=== PATIENT | male | born 1980 | race Caucasian/White ===

== ENCOUNTER 2018-12-05 10:00 | Day surgery (SDC) | payer OTHER ==
--- NOTE | 2018-12-04 20:29 | PDGENHP ---
History and Physical - Chief Complaint RIGHT HIP PAIN - History of Present Illness 1.~LEFT-Femoroacetabular impingement (DIANNA) Cam type,~with~resultant labral tear ; RIGHT SIDE SYMPTOMATIC 2. History of Right Hip Arthroscopy HISTORY OF PRESENT ILLNESS: Seymouris a~36 y.o.~very~~active~male~who I have had the pleasure to consult on today.~I have enjoyed meeting him.~He~lives in [place].~~Tyrell~works in [employer] in [employer].~~He~is ;~he~has 2~children. ~Seymourenjoys golfing, skiing , and basketball. Tyrell's~right~hip pain~started December 2015 after running a 10K and~two~ subsequent 5Ks, with~no~recalled trauma or injury, and with~no~previous complaints.~Seymourdoes not have~a known history of hip dysplasia. Presentation today is of~anterior~right~hip pain.~~He describes having~right lower radicular symptoms down to his feet which get numb.~~The hip~does not~ wake him~at night and~does~click and catch on~him. Sitting~can be uncomfortable~ for him.~Seymourdoes~report suffering from lower back pain episodes. (DDD and herniated discs unclear which levels) Seymourhas not~participated in physical therapy and has~tried other conservative measures including cortisone~hip injections~a month ago (0% relief , either immediate or snf)~.~He~has not~received sufficient symptomatic improvement. Tyrell~has~utilized medication for pain management, including NSAID.~Tyrell~has used medication for since the pain began. Seymourhas~issues with the left~hip that he attributes to compensation.~ Seymourunderstands that~he~has a hip and pelvis problem which should be researched and wishes to get a better understanding of~his~hip status, followed by an establishment of a treatment strategy, hoping~luke~would be able to get back to~his~well being active life. History: Past medical history:~~ None which is relevant~ Relevant familial history:~Father with OA Past surgical history:~ No. Surgery Anesthesia 1 Upper and lower mandible general 2 septoplasty general 3. Right Hip Arthroscopy Tyrell~denies problematic issues with general anesthesia in the past. I have reviewed, verified and agree with the past medical, surgical, family and social history. Current Medications:~has a current medication list which includes the following prescription(s): meloxicam. ALLERGIES:~is allergic to ibuprofen. Objective: Physical Examination: Tyrell~is 6~feet~1~inches tall and weighs~180~Lbs. Tyrell~is AAO x3; he~is well- nourished, in NAD. Skin is warm and dry. ~Breathing is non-labored. ~CV with RRR by pulse. Abdomen is soft, NTND. Currently,~he~walks with a~normal~gait. Trendelenburg sign is~negative~and proprioception~is normal,~both~sides. He~presents~with mild~signs of joint laxity.~Beightons Score:~2 He~is fit looking. ~~ Lower spine examination is~negative~for sciatic or femoral nerve irritation with negative~SLR &~femoral stretch tests. Range of motion of the spine is normal~for flexion, extension, and rotations,~with no~associated pain. Strength, Sensation and pulses are~normal -~bilaterally Ankles and knees exams are~normal~and~no~mal-alignment is evident.~ He~has~no leg length discrepancy. Thigh circumference is~asymmetric~with low~muscle atrophy~on right~side. Hip ROM (degrees): FL ER At 90~hip FL IR At 90~hip FL AB AD EX IR Neutral hip ER Neutral hip R 105 45 25-30 50 5 10 50 40 L 105 50 20 40 5 10 50 40 Specific hip and pelvis tests: Impingement Test JOSSELIN Roll Add. Longus R +++ +++ + Negative L Negative Negative Negative Negative Glut. Med ITB Posterior Imp R Negative 5/5 strength + 5/5 strength Negative L Negative 5/5 strength Negative 5/5 strength Negative Squeeze test measured~strong Bony Symphysis pubis is~painful~to touch~while concentric activity of the rectus abdominis, does~produce pain at its insertion~painful on R side. Ilio Psos specific tests are~positive for pain~during cycling for the right hip~ and remarkable for painful snap HF has~increased pain and weakness on~the right hip. Anterior~capsule tenderness on the R side Greater trochanteric burse is~pain free~on both hips. Piriformis tests: FAIR is~negative,~with no~local signs of neuritis related to sciatic nerve. SIJs examination is~normal~with~normal~JOSSELIN in relation and local tenderness. Hamstrings tests are~negative~functional contraction both hips. On a daily basis, the following percentages reflect~Tyrell's overall total pain: Imaging: Radiology studies which I~have personally reviewed, analyzed and measured are below: XR: AP of the hip and pelvis: Performed in a~good~technique Coccyx~at level of~pubic symphysis 15~degrees caudal [place]~Lines are preserved. Minimal~Pathological signs are seen in the Symphysis Pubis.~ Minimal~Pathological signs are seen at the Ischial~tuberosity. ~ Specific measurements show: NSA~ LCE Sourcil~Angle Sharp's angle Lat. Cam Lat. Pincer C.Over~sign Head~Coverage % ATDmm R N 30 4 39 + - 12-1 N N L N 28 5 38 + - 12-1 N N Pos. wall sign ISS NAD ~~Dysplasia Comments R + Negative 14.3~mm Negative L + Negative 14.8~mm Negative Sclerosis Sup. Lat. OA Cysts Joint Space-WBZ Joint Space-Medial R Negative Negative Negative 3.6~mm 3.1~mm L Negative Negative Negative 3.5~mm 3.1~mm X Table lateral: Anterior cam lesion is~seen~on both hips. Alpha Angle: ~ Right~57 degrees on Jacobo and 65 degrees on AP Left~63~degrees both views MRI shows:~good cartilage coverage, no bone edema, small labrum with labral tear Impression and plan:~ Tyrell~is a~36 y.o.~active male~suffering from symptomatic~Right~hip pain due to Right~Femoroacetabular impingement (DIANNA) Cam type,~with~resultant labral tear ~causing significant disability to~him~and altering~his~sport and life activities. Physical examination, imaging, and~his~story correspond with the diagnosis mentioned above. I explained that femoroacetabular impingement (DIANNA) arises due to a bony or soft tissue conflict between the femur (ball) and acetabulum (socket) caused by an abnormality in the shape of the hip joint. Over time, repetitive impingement can result in damage to the labrum and adjacent surface cartilage within the socket, ultimately giving rise to progressive osteoarthritis of the hip. I explained that although a labral tear can be a source of pain, it is rarely the root of the problem and typically occurs secondary to an underlying abnormality in the shape and mechanics of the hip joint. ~ I reviewed conservative treatment options for DIANNA including activity modification to avoid positions of impingement, physical therapy, non-steroidal anti-inflammatory medications, and various injections (corticosteroid and PRP) aimed at reducing inflammation in the hip joint or/and preventing dynamic impingement. PRP injections may promote healing and reduce symptoms in certain cases but it will not repair chronically damaged tissue. Although these measures may help to buy time and reduce current level of symptoms, they are not a definitive solution to the problem given the underlying abnormality in the shape of the hip joint. Patients who have failed conservative management and continue to experience symptoms are candidates for hip arthroscopy, a minimally invasive surgery that can definitively address the underlying problem. Hip arthroscopy typically includes treating the labrum with either repair or reconstruction of the torn labrum; as well as addressing the underlying abnormalities by restoring the normal shape to the hip joint. ~If the cartilage is damaged a Microfracture surgical procedure may also be necessary to help stimulate the growth of fibrocartilage. ~If a patient requires a labral reconstruction or a Microfracture, the initial rehabilitation from the surgery may take longer, but the welding instructor results are typically favorable. In order to differentiate between the various possible sources of pain~Seymour opted to move forward with an intra articular injection today in clinic. After verbal consent was obtained and Seymourvoiced understanding of risks of infection, misplaced injection, fat or skin atrophy or injection into unintended structures, skin was prepped and draped in routine sterile fashion. With sterile technique, after local skin and subcutaneous tissues were injected with 5cc 1% lidocaine, an injection of 7cc of 1% lidocaine+marcaine~was injected into Tyrell's hip joint without complication. The procedure was well tolerated.~Seymournoted improved symptoms with activity immediately after injection. The injection took~100% of the pain away,~confirming~the hip joint as the major source of his~pain. I reviewed the technical aspects of hip arthroscopy including risks, benefits, and expected course of recovery.~Seymourunderstands that hip arthroscopy is a minimally invasive outpatient procedure carried out through small incisions on the outer aspect of the hip joint. During surgery, the labral tear will be identified and either repaired or reconstructed~using bone anchors and suture material. Additionally, any excessive bone will be removed with a high-speed keny to reshape the hip joint and restore normal anatomy. Risks include infection, bleeding, injury to nearby nerves or vessels, stiffness, persistent pain, instability, venous thromboembolic disease, and traction related complications including temporary foot numbness. Rarely, revision surgery may be required to address these problems. Overall recovery takes approximately 4~ 8~months depending on the extent of damage and degree of repair. In the event that the labral tissue quality is inadequate for successful repair and healing,~Seymourunderstands that a labral reconstruction will be performed. This procedure entails placing a cadaver tissue graft within the hip joint and stabilizing it with bone anchors to build a new labrum. The overall recovery time for labral reconstruction is similar to that of labral repair, although the surgical procedure takes longer to perform. Seymourwill review the info presented. In order to obtain more detailed information regarding the alignment, orientation, and shape of the bony hip and pelvis I will order a CT scan to be performed. The results of the CT scan, including femoral torsion and acetabular version measured values and 3D images, will aid me in deciding on the best treatment strategy and surgical pre-planning. Seymourwill contact us if he~wishes to pursue further treatment in the future. Seymouris happy with this plan. I have also supplied~him~with handouts, outlining the expected surgical treatment and rehab involved. I wish~Seymourall the best, ~~ Jerman Daniels, PAC History Information - Allergies/Home Medication List Allergies/Adverse Reactions: ibuprofen Allergy (Verified 12/01/18 12:22) Rash Home Medications: NK [No Known Home Meds] 12/01/18 [Last Taken Unknown] I have personally reviewed and updated: medical history - Social History Smoking Status: Former smoker Review of Systems Review of Systems: Physical Exam Physical Exam:
[2018-12-05] MEDS ORDERED: ceFAZolin 2 GM/DEXTROSE 100 ML IV ONE (10:09)
[2018-12-05] MEDS ORDERED: ACETAMINOPHEN 500 MG TAB PO ONE (10:09)
[2018-12-05] MEDS ORDERED: PREGABALIN 150 MG CAP PO ONE (10:09)
[2018-12-05] MEDS ORDERED: LIDOCAINE 1% 2 ML INJ ID PRN (10:10)
[2018-12-05] MEDS ORDERED: LR 1,000 ML IV ONE (10:10)
[2018-12-05] MEDS ORDERED: EPINEPHrine 1 MG/ML INJ ONE (11:10)
[2018-12-05] MEDS ORDERED: BUPIVACAINE/EPI 0.25% 30 ML SDV ONE (11:10)
--- NOTE | 2018-12-05 11:33 | PDANEPAE ---
ANE History of Present Illness scar tissue for hip scope ANE Past Medical History - Cardiovascular History Hx Hypertension: No Hx Arrhythmias: No Hx Chest Pain: No Hx Coronary Artery / Peripheral Vascular Disease: No Hx CHF / Valvular Disease: No Hx Palpitations: No - Pulmonary History Hx COPD: No Hx Asthma/Reactive Airway Disease: No Hx Recent Upper Respiratory Infection: No Hx Oxygen in Use at Home: No Hx Sleep Apnea: No Sleep Apnea Screening Result - Last Documented: Negative - Neurologic History Hx Cerebrovascular Accident: No Hx Seizures: No Hx Dementia: No - Endocrine History Hx Diabetes: No - Renal History Hx Renal Disorders: No - Liver History Hx Hepatic Disorders: No - Neurological & Psychiatric Hx Hx Neurological and Psychiatric Disorders: No - Cancer History Hx Cancer: No - Congenital Disorder History Hx Congenital Disorders: No - GI History Hx Gastrointestinal Disorders: No - Other Health History Other Health History: wears glasses - Chronic Pain History Chronic Pain: No - Surgical History Prior Surgeries: upper and lower jaw surgery. deviated septum. right hip surgery with jonelle [facility] Review of Systems Review of Systems: - Exercise capacity METS (RN): 4 METS ANE Patient History - Allergies Allergies/Adverse Reactions: ibuprofen Allergy (Verified 12/01/18 12:22) Rash - Home Medications Home medications: home medication list seen and reviewed Home Medications: NK [No Known Home Meds] 12/01/18 [Last Taken Unknown] - NPO status NPO Status: no food or drink >8 hours NPO Since - Liquids (Date): 12/05/18 NPO Since - Liquids (Time): 07:00 NPO Since - Solids (Date): 12/04/18 NPO Since - Solids (Time): 19:00 - Anes Hx Anes Hx: no prior problems - Smoking Hx Smoking Status: Former smoker - Alcohol Use Alcohol Use: Rarely - Family Anes Hx Family Anes Hx: none Family Hx Anesthesia Complications: none ANE Labs/Vital Signs - Vital Signs Blood Pressure: 117/72 Heart Rate: 57 Respiratory Rate: 18 O2 Sat (%): 97 Height: 185.42 cm Weight: 79.379 kg ANE Physical Exam - Airway Neck exam: FROM Mallampati Score: Class 2 Mouth exam: normal dental/mouth exam - Pulmonary Pulmonary: no respiratory distress - Cardiovascular Cardiovascular: regular rate and rhythym - ASA Status ASA Status: I ANE Anesthesia Plan Anesthesia Plan: general endotracheal anesthesia, GA w LMA
[2018-12-05] MEDS ORDERED: fentaNYL 100 MCG/2 ML INJ ONE (11:39)
[2018-12-05] MEDS ORDERED: PROPOFOL/EMULSION 500 MG/50 ML BOTTLE IV ONE (11:39)
[2018-12-05] MEDS ORDERED: ETOMIDATE 20 MG/10 ML VIAL ONE (11:39)
[2018-12-05] MEDS ORDERED: THROMBIN(HUM PLAS)/FIBRINOG/CA 5 ML VIAL TP ONE (13:08)
[2018-12-05] MEDS ORDERED: PROPOFOL 200 MG/20 ML VIAL ONE (13:17)
[2018-12-05] MEDS ORDERED: fentaNYL 100 MCG/2 ML INJ IVP PRN (14:06)
[2018-12-05] MEDS ORDERED: LABETALOL HCL 5 MG/ML 20 ML MDV IVP PRN (14:06)
[2018-12-05] MEDS ORDERED: ONDANSETRON 4 MG/2 ML VIAL IVP PRN (14:06)
[2018-12-05] MEDS ORDERED: PHENYLEPHRINE HCL 100 MCG/ML SYR IVP PRN (14:06)
[2018-12-05] MEDS ORDERED: ALBUTEROL 3 ML DEYVIAL IH PRN (14:06)
[2018-12-05] MEDS ORDERED: oxyCODONE IR 5 MG TAB PO PRN (14:06)
[2018-12-05] MEDS ORDERED: MEPERIDINE 25 MG/0.5 ML AMP IVP PRN (14:06)
[2018-12-05] MEDS ORDERED: LR 500 ML IV PRN (14:06)
[2018-12-05] MEDS ORDERED: PROMETHAZINE HCL 25 MG/ML INJ IVP PRN (14:06)
[2018-12-05] MEDS ORDERED: NALOXONE HCL 0.4 MG/ML INJ IVP PRN (14:06)
[2018-12-05] MEDS ORDERED: DEXAMETHASONE 4 MG/ML VIAL IVP PRN (14:06)
[2018-12-05] MEDS ORDERED: METOCLOPRAMIDE 10 MG/2 ML VIAL IVP PRN (14:06)
[2018-12-05] MEDS ORDERED: ONDANSETRON 4 MG/2 ML VIAL ONE (14:12)
[2018-12-05] MEDS ORDERED: DEXAMETHASONE 4 MG/ML VIAL ONE ×2 (14:12)
[2018-12-05] MEDS ORDERED: GLYCOPYRROLATE 0.2 MG/1 ML VIAL ONE ×2 (14:13)
[2018-12-05] MEDS ORDERED: NEOSTIGMINE METHYLSULFATE 10 MG/10 ML MDV ONE (14:13)
[2018-12-05] MEDS ORDERED: MEPERIDINE 25 MG/0.5 ML AMP ONE (14:46)
[2018-12-05] MEDS ORDERED: HYDROmorphONE/DILAUDID 1 MG/ML INJ ONE (14:59)
[2018-12-05] MEDS ORDERED: oxyCODONE IR 5 MG TAB ONE (15:07)
[2018-12-05] MEDS ORDERED: DIAZEPAM 5 MG TAB PO ONE (16:45)
[2018-12-05] MEDS ORDERED: DIAZEPAM 5 MG TAB ONE (16:46)
[2018-12-05 18:32] VITALS: BP 115/86
--- NOTE | 2018-12-08 08:02 | POSTANESTH ---
Post Anesthetic Evaluation Cardiovascular Status: Normal, Stable Respiratory Status: Normal, Stable Level of Consciousness/Mental Status: Can Participate in Eval Pain Control: Adequate, Prn Tx Ordered Nausea/Vomiting Control: Adequate, Prn Tx Ordered Complications Possibly Related to Anesthesia: None Noted
== END 2018-12-05 18:41 | disposition home or self-care (01) ==
LOC: FSGY 10:00
PROVIDERS: ATTEND Orthopaedic Surgery Sports Medicine
DX: T84.89XA Other specified complication of internal orthopedic prosthetic devices, implants and grafts, initial encounter (principal); M25.851 Other specified joint disorders, right hip
CPT/HCPCS: C1713; C1762; J0171; J0690; J1100; J1170; J2175; J2270; J2405; J2704; J3010